=== PATIENT | male | born 1965 ===

== ENCOUNTER 2016-11-01 19:23 | Inpatient (IN) | payer OTHER ==
--- NOTE | ~2016-11-01 | HP ---
History And Physical [address] [place]. [address] NAME: TRACI KAMARA : 61 STATUS : ADM IN [facility]#: [id number] AGE: 50 ADM/REG DATE : 11/01/16 MR#: [id number] REPORT SERV DATE: 11/01/16 DICTATED BY: GEORGI CORDOVA DATE: 11/01/16 REPORT STATUS : Draft TRANSCRIBED BY: MODL DATE: 11/01/16 DATE OF ADMISSION: 11/01/2016 ADMISSION DIAGNOSIS: Myocardial infarction. HISTORY OF PRESENT ILLNESS: Mr. Kamara is a 50-year-old male, who was transferred to [facility] emergently from [facility] where he presented minutes before for evaluation of chest discomfort and had an EKG suggestive of evolving inferior wall ST- elevation ID. Due to their laboratory chemical assistant being occupied, we were called to triage the patient and based on the presentation and the EKG, I elected to bring the patient to the laboratory chemical assistant emergently. Targeted history obtained when the patient arrived in the laboratory chemical assistant. He reports onset of chest discomfort approximately 3-4 hours earlier in the center of his chest, described as tight with no radiation to the neck, jaw, or back. It was associated with shortness of breath, but no nausea, vomiting, or dizziness. He never had any symptoms like this before. He has no cardiovascular history and states that only a diagnosis of hypertension which is not currently being treated with medication. His EKG was reviewed and demonstrated mild ST elevations, possible AV conduction suggestive of heart block with junctional escape in the mid 50s. PAST MEDICAL HISTORY: Hypertension, tonsillectomy. MEDICATIONS: None. ALLERGIES: NONE. FAMILY HISTORY: Noncontributory. SOCIAL HISTORY: The patient is . Lives in [facility]. Works as a flight mechanic, repairing motors. Does not smoke, drink, or use illicit drugs. REVIEW OF SYSTEMS: Per HPI, otherwise negative. PHYSICAL EXAMINATION: VITAL SIGNS: Upon arrival to laboratory chemical assistant, heart rate approximately 50, blood pressure 150/95, respiratory rate 16. GENERAL: Appears comfortable. HEENT: Sclerae anicteric; mucous membranes moist. NECK: No JVD. Thyroid not tender or enlarged. CARDIOVASCULAR: Regular rhythm with normal S1/S2. No murmurs, rubs, or gallop. PULMONARY: Lung renee CTA. ABDOMEN: Soft, nontender, no masses. EXTREMITIES: Warm, no edema. NEUROLOGIC: Grossly without deficits. History And Physical [address] [address] NAME: TRACI KAMARA : 61 STATUS : ADM IN PAT#: [id number] AGE: 50 ADM/REG DATE : 11/01/16 MR#: [id number] REPORT SERV DATE: 11/01/16 DICTATED BY: GEORGI CORDOVA DATE: 11/01/16 REPORT STATUS : Draft TRANSCRIBED BY: KEVIN DATE: 11/01/16 LABS: Not available at the time of dictation. EKG dated 11/01/2016, time is not apparent on the EKG that I am seeing, but notable for junctional rhythm with AV dissociation, ventricular rate approximately 48, 1 mm elevation in III and aVF with 0.5 mm depression in 1 and aVL. IMPRESSION/RECOMMENDATIONS: 1. Acute inferior wall ST-elevation myocardial infarction. 2. Hypertension. Given the patient's presentation EKG, acute coronary occlusion is suspected. We will perform urgent cardiac catheterization. I briefly discussed the details of the procedure with the patient including risk of major and minor complications. We will attempt a radial approach. Further recommendations pending cardiac catheterization. VIKTOR/KEVIN Georgi Cordova MD / [id number] CC: Georgi Cordova MD
[2016-11-01 20:07] LABS: CREATININE 0.8 MG/DL (0.70-1.30)
[2016-11-01 20:33] LABS: BUN (BLOOD UREA NITROGEN) 14 MG/DL (6-23); CALCIUM, SERUM 7.5 MG/DL (8.5-10.4); CHLORIDE, SERUM 113 MMOL/L (96-112); CO2 (CARBON DIOXIDE) 23 MMOL/L (24-34); GFR AFRICAN AMERICAN 113 ML/MIN (>=60); GFR NON AFRICAN AMERICAN 98 ML/MIN (>=60); GLUCOSE, SERUM 143 MG/DL (60-99); POTASSIUM, SERUM 3.3 MMOL/L (3.5-5.3); SODIUM, SERUM 144 MMOL/L (135-148)
[2016-11-01 20:36] LABS: CHEST PAIN PROFILE TAT 0 Hrs 26 Mins; TROPONIN I 0.35 NG/ML (<0.05)
[2016-11-01] MEDS ORDERED: ASA5GR PO (22:49)
[2016-11-01 23:50] LABS: CK-MB 37.6 NG/ML
[2016-11-01 23:52] LABS: CKMB INDEX (NOT ORD) 8.1; TROPONIN I 2.84 NG/ML (<0.05)
[2016-11-02 01:19] LABS: BUN (BLOOD UREA NITROGEN) 12 MG/DL (6-23); CHLORIDE, SERUM 108 MMOL/L (96-112); CO2 (CARBON DIOXIDE) 26 MMOL/L (24-34); GFR AFRICAN AMERICAN 100 ML/MIN (>=60); GFR NON AFRICAN AMERICAN 86 ML/MIN (>=60); GLUCOSE, SERUM 123 MG/DL (60-99); POTASSIUM, SERUM 3.7 MMOL/L (3.5-5.3); SODIUM, SERUM 142 MMOL/L (135-148)
[2016-11-02 05:35] LABS: BASOPHILS 0.2 %; BASOPHILS ABSOLUTE 0.02 10/3/uL (0.0-0.16); EOSINOPHILS 0.5 %; EOSINOPHILS ABSOLUTE 0.06 10/3/uL (0.0-0.53); HEMOGLOBIN 13.7 g/dL (13.6-17.8); IMMATURE GRANULOCYTES 0.3 %; IMMATURE GRANULOCYTES ABSOLUTE 0.03 10/3/uL (0.0-0.11); LYMPHOCYTES 18.9 %; LYMPHOCYTES ABSOLUTE 2.17 10/3/uL (0.67-4.30); MEAN CORPUS HGB CONC 34.3 g/dL (32.0-36.0); MEAN CORPUSCULAR HEMOGLOB 29.8 pg (26.0-34.0); MEAN CORPUSCULAR VOLUME 87.1 fL (80-100); MEAN PLATELET VOLUME 9.7 fL (9.2-13.0); MONOCYTES ABSOLUTE 0.92 10/3/uL (0.21-1.20); NEUTROPHILS 72.1 %; PLATELET COUNT 220 10/3/uL (150-400); RBC DISTRIBUTION WIDTH 12.9 % (12.0-16.0); RED CELL COUNT 4.59 10/6/uL (4.7-6.1); WHITE BLOOD CELLS 11.5 10/3/uL (4.5-10.5)
[2016-11-02 05:36] LABS: MANUAL DIFF NO %
[2016-11-02 06:02] LABS: BUN (BLOOD UREA NITROGEN) 10 MG/DL (6-23); CALCIUM, SERUM 8.2 MG/DL (8.5-10.4); CHLORIDE, SERUM 110 MMOL/L (96-112); CHOLESTEROL 163 MG/DL (< 200); CK-MB 125.7 NG/ML; CO2 (CARBON DIOXIDE) 24 MMOL/L (24-34); CPK 1201 U/L (0-200); CREATININE 0.96 MG/DL (0.70-1.30); GFR AFRICAN AMERICAN 105 ML/MIN (>=60); GFR NON AFRICAN AMERICAN 91 ML/MIN (>=60); GLUCOSE, SERUM 110 MG/DL (60-99); HDL CHOLESTEROL 27 MG/DL (> 39); LDL CHOLESTEROL 99 MG/DL (< 130); NON-HDL CHOLESTEROL 136 MG/DL (< 160); POTASSIUM, SERUM 3.5 MMOL/L (3.5-5.3); SODIUM, SERUM 138 MMOL/L (135-148); TRIGLYCERIDE 187 MG/DL (< 150)
[2016-11-02 06:03] LABS: CKMB INDEX (NOT ORD) 10.5
[2016-11-02] MEDS ORDERED: ASAB PO (10:25)
[2016-11-02 13:51] LABS: CK-MB 147.6 NG/ML
[2016-11-02 13:52] LABS: CKMB INDEX (NOT ORD) 8.5
[2016-11-02 22:18] LABS: CK-MB 89.6 NG/ML; CKMB INDEX (NOT ORD) 6.7
[2016-11-03 05:38] LABS: CREATININE 1.19 MG/DL (0.70-1.30)
[2016-11-03 08:45] LABS: INTERNATIONAL NORMAL RATI 1.3 UNITS (-); PARTIAL THROMBO TIME 91.8 SEC (22.5-37.2); PROTIME (NOT ORD) 15.7 SEC (12.0-14.5)
[2016-11-03] MEDS ORDERED: NTG150 SL (15:38)
[2016-11-03] MEDS ORDERED: LIPITOR80 MG PO (15:38)
[2016-11-03] MEDS ORDERED: PLAVIX PO (15:38)
[2016-11-03] MEDS ORDERED: COREG6 PO (15:39)
[2016-11-03] MEDS ORDERED: PRIN5 PO (15:39)
== END 2016-11-03 17:28 | disposition home or self-care (01) | DRG 247 ==
LOC: CCU 19:23 → SSU2 19:24 → CCU 21:15 → 5NO 11-02 15:10
PROVIDERS: Internal Medicine Cardiovascular Disease
PROC: 4A023N7 Measurement of Cardiac Sampling and Pressure, Left Heart, Percutaneous Approach (ICD-10-PCS; principal; 2016-11-01)
PROC: 027034Z Dilation of Coronary Artery, One Artery with Drug-eluting Intraluminal Device, Percutaneous Approach (ICD-10-PCS; 2016-11-01)
PROC: B2111ZZ Fluoroscopy of Multiple Coronary Arteries using Low Osmolar Contrast (ICD-10-PCS; 2016-11-01)
PROC: B2151ZZ Fluoroscopy of Left Heart using Low Osmolar Contrast (ICD-10-PCS; 2016-11-01)
DX: I21.19 ST elevation (STEMI) myocardial infarction involving other coronary artery of inferior wall (principal); I10 Essential (primary) hypertension; I25.10 Atherosclerotic heart disease of native coronary artery without angina pectoris
CPT/HCPCS: 71010; 80048; 80061; 82550; 82553; 82565; 83735; 84132; 84295; 84484; 85025; 85610; 85730; 93005; 93306; 93458; 99152; 99153; A9270-GY; C1725; C1769; C1874; C1887; C1894; C9606; J0583; J2250; J2370; J3010; Q9967